=== PATIENT | female | born 2000 | race Two or more races ===

== ENCOUNTER 2024-05-21 03:22 | Emergency (ER) | payer BC, OTHER, MEDICAID ==
[~2024-05-21] VITALS: Ht 162.6 cm; Wt 65.0 kg
[2024-05-21] VITALS (7 sets, daily range): BP systolic 103–132; BP diastolic 61–73; PULSE 74–102; RESP 11–22; TEMP 98–98.4; O2SAT 97
[2024-05-21] MEDS: ONDANSETRON HCL 4 MG/2 ML VIAL IV ONE (04:00)
[2024-05-21 04:32] LABS: Basophils # (auto) 0 10 ^3/uL (0-0.2); Basophils % (auto) 0.1 % (0.0-2.0); Eosinophils # (auto) 0 10 ^3/uL (0-0.8); Eosinophils % (auto) 0.1 % (0.0-7.0); Hematocrit 26.7 % (36.0-46.0); Hemoglobin 8.9 g/dL (12.2-16.2); Lymphocytes # (auto) 1.7 10 ^3/uL (0.4-5.4); Lymphocytes % (auto) 11.3 % (10.0-50.0); Mean Corpuscular Hemoglobin 29.2 pg (28.0-32.0); Mean Corpuscular Hgb Conc. 33.3 g/dL (32.0-36.0); Mean Corpuscular Volume 87.7 fL (80.0-100.0); Monocytes # (auto) 0.9 10 ^3/uL (0-1.3); Monocytes % (auto) 6.2 % (0.0-12.0); Neutrophils # (auto) 12.3 10 ^3/uL (1.6-8.6); Neutrophils % (auto) 82.3 % (37.0-80.0); Red Blood Cells 3.05 10^6/uL (4.0-5.20); Red Cell Distribution Width 14.2 % (11.8-14.3)
[2024-05-21 04:42] LABS: Chloride 107 mmol/L (98-107); Potassium 3.5 mmol/L (3.5-5.1); Sodium 137 mmol/L (136-145)
[2024-05-21 04:43] LABS: Anion Gap 7 (5-15); Carbon Dioxide 23 mmol/L (20-30)
[2024-05-21 04:48] LABS: BUN/Creatinine Ratio 12.2 (10.0-20.0); Blood Urea Nitrogen 6 mg/dL (9-23); Glucose 86 mg/dL (74-106)
[2024-05-21 04:50] LABS: INR 0.98 (0.9-1.15); Partial Thromboplastin Time 25.4 SEC (24.5-34.5); Prothrombin Time 10.4 sec (9.3-11.8)
[2024-05-21] MEDS: miSOPROStol 50 MCG per PRE-CUT 1/2 TAB PO ONE ×2 (04:52→10:10)
[2024-05-21] MEDS: OXYTOCIN 10UNIT/ML 1ML VIAL IM ONE (04:56)
[2024-05-21] MEDS: NS/OXYTOCIN 20UNITS 1,000 ML IV ONE ×2 (05:00→05:16)
[2024-05-21] MEDS: SODIUM CHLORIDE 0.9% 1,000 ML IV ONE (06:45)
[2024-05-21 07:05] LABS: Basophils # (auto) 0 10 ^3/uL (0-0.2); Basophils % (auto) 0.1 % (0.0-2.0); Eosinophils # (auto) 0 10 ^3/uL (0-0.8); Eosinophils % (auto) 0.3 % (0.0-7.0); Hematocrit 26.1 % (36.0-46.0); Hemoglobin 8.6 g/dL (12.2-16.2); Lymphocytes # (auto) 2.2 10 ^3/uL (0.4-5.4); Lymphocytes % (auto) 15.8 % (10.0-50.0); Mean Corpuscular Hemoglobin 28.8 pg (28.0-32.0); Mean Corpuscular Hgb Conc. 32.9 g/dL (32.0-36.0); Mean Corpuscular Volume 87.3 fL (80.0-100.0); Monocytes # (auto) 0.9 10 ^3/uL (0-1.3); Monocytes % (auto) 6.6 % (0.0-12.0); Neutrophils # (auto) 10.6 10 ^3/uL (1.6-8.6); Neutrophils % (auto) 77.2 % (37.0-80.0); Red Blood Cells 2.99 10^6/uL (4.0-5.20); Red Cell Distribution Width 14.5 % (11.8-14.3); White Blood Cell 13.8 10^3/uL (4.4-10.8)
[2024-05-21] MEDS: METHYLERGONOVINE MALEATE 0.2 MG/ML AMP IM ONE (10:09)
== END 2024-05-21 19:20 | disposition home or self-care (01) ==
LOC: ER 03:22 → EDBD 03:22 → ER 19:20
DX: O26.22 Pregnancy care for patient with recurrent pregnancy loss, second trimester (principal); N93.9 Abnormal uterine and vaginal bleeding, unspecified; Z37.9 Outcome of delivery, unspecified
CPT/HCPCS: 36415; 36430; 80048; 85025; 85610; 85730; 86850; 86900; 86901; 86920; 96365; 96366; 96372; 96375; 99291; J2210; J2405; J2590; P9016